=== PATIENT | male | born 1970 | race Hispanic/Latino ===

== ENCOUNTER 2017-02-08 20:05 | Emergency (ER) | payer OTHER ==
[~2017-02-08] VITALS: Ht 172.7 cm; Wt 71.8 kg
[2017-02-08 20:11] VITALS: BP 156/93; PULSE 83; RESP 16; O2SAT 98
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
--- NOTE | 2017-02-08 21:59 | DRSVH ---
PROCEDURE: X-RAY CHEST, TWO VIEWS ([id number]) INDICATIONS: choking episodes TECHNIQUE: 2 views of the chest were acquired. COMPARISON: None. FINDINGS: Surgical changes and devices: None. Lungs and pleura: No pleural effusions or pneumothorax. Lungs are clear. Mediastinum: Mediastinal contours are normal. Heart size is normal. Bones and chest wall: No suspicious bony abnormalities. Soft tissues appear unremarkable. IMPRESSION: 1. No acute cardiopulmonary disease. Dictated by: Rell Barksdale M.D. on 02/08/2017 at 21:57 Approved by: Rell Barksdale M.D. on 02/08/2017 at 21:57
[2017-02-08 22:59] LABS: Mean Corpuscular Hemoglobin 30.4 pg (27.0-35.0); Mean Corpuscular Volume 87.6 fL (81-100); Platelet Count 314 bil/L (150-400)
[2017-02-08 23:00] LABS: BASOPHILS % (AUTO) 0.6 % (0-3); EOSINOPHILS % (AUTO) 2.6 % (0-5); MONOCYTES % (AUTO) 10.2 % (4-12); NEUTROPHILS % (AUTO) 52.2 % (40-74)
[2017-02-08 23:17] LABS: ERYTHROCYTE SEDIMENTATION RATE 8 mm/hr (0-15)
[2017-02-08] MEDS ORDERED: OMEP20TA86 PO (23:47)
[2017-02-08 23:53] VITALS: BP 129/76; PULSE 74; RESP 16; O2SAT 97
[2017-02-09] VITALS: BP 129/76; PULSE 74; RESP 16; O2SAT 97
--- NOTE | 2017-02-09 08:43 | DRSVH ---
PROCEDURE: X-RAY CERVICAL SPINE, 2 OR 3 VIEWS INDICATIONS: left arm radiculopathy TECHNIQUE: 3 views of the cervical spine were acquired. COMPARISON: None. FINDINGS: Bones: No fractures or dislocations to the C7 level. The lateral masses of C1 appear intact on the odontoid view. There is minimal retrolisthesis at C2-C3 and C3-C4. The disc spaces appear preserved . No suspicious bony lesions. Soft tissues: No prevertebral soft tissue swelling. IMPRESSION: 1. Minimal retrolisthesis at C2-C3 and C3-C4. Dictated by: Rell Barksdale M.D. on 02/09/2017 at 8:41 Approved by: Rell Barksdale M.D. on 02/09/2017 at 8:42
== END 2017-02-09 00:01 | disposition home or self-care (01) ==
LOC: SED 20:05
DX: K21.9 Gastro-esophageal reflux disease without esophagitis (principal); M54.12 Radiculopathy, cervical region